=== PATIENT | male | born 1955 | race African-American/Black ===

== ENCOUNTER 2022-04-01 14:33 | Inpatient (IN) ==
[2022-04-01] MEDS ORDERED: GLUCOPHAGE ONE (16:25)
[2022-04-01] MEDS: ZOSYN VIAL 3.375 GRAMS 3.375 G in NS 100 ML IV 100 ML IV SCH ×2 (16:43→21:10)
[2022-04-01] MEDS: LR 1,000 ML IV 1,000 ML IV SCH (16:43)
[2022-04-01] MEDS: GLUCOPHAGE PO SCH (16:43)
[2022-04-01] MEDS: SNACK - Diabetic Appropriate PO SCH (19:58)
[2022-04-01] MEDS: NEURONTIN CAP 300 MG PO SCH (21:10)
[2022-04-02] MEDS ORDERED: GLUCOPHAGE ONE ×2 (05:41→17:11)
[2022-04-02] MEDS: LR 1,000 ML IV 1,000 ML IV SCH ×2 (06:01→17:07)
[2022-04-02] MEDS: AMARYL TAB 4 MG PO SCH (06:01)
[2022-04-02 06:02] LABS: BASOPHILS % (AUTO) 0.4 % (0.2-1.0); EOSINOPHILS # (AUTO) 0.3 x10^3/uL (0.0-0.2); EOSINOPHILS % (AUTO) 3.8 % (0.9-2.9); HEMATOCRIT 33.8 % (42.0-54.0); HEMOGLOBIN 11.8 g/dL (13.5-18.0); LYMPHOCYTES % (AUTO) 36.2 % (21.0-51.0); MEAN CORPUSCULAR HEMOGLOBIN 25.1 pg (27.0-34.0); MEAN CORPUSCULAR HGB CONC 34.9 g/dL (33.0-35.0); MEAN CORPUSCULAR VOLUME 71.9 fL (80.0-100.0); MEAN PLATELET VOLUME 7.9 fL (7.4-11.0); MONOCYTES # (AUTO) 0.6 x10^3/uL (0.3-0.8); MONOCYTES % (AUTO) 7.9 % (0.0-13.0); NEUTROPHILS # (AUTO) 4.2 x10^3/uL (2.2-4.8); NEUTROPHILS % (AUTO) 51.7 % (42.0-75.0); RED CELL DISTRIBUTION WIDTH 15.8 % (11.6-16.5); WHITE BLOOD COUNT 8.2 X10^3/uL (3.6-10.0)
[2022-04-02] MEDS: ZOSYN VIAL 3.375 GRAMS 3.375 G in NS 100 ML IV 100 ML IV SCH ×3 (06:02→21:01)
[2022-04-02] MEDS: GLUCOPHAGE PO SCH ×2 (06:02→17:12)
[2022-04-02 06:13] LABS: ALANINE AMINOTRANSFERASE 22 Units/L (12-78); ALBUMIN 3.2 g/dL (3.4-5.0); ALKALINE PHOSPHATASE 87 Units/L (46-116); ASPARTATE AMINO TRANSFERASE 14 Units/L (15-37); BLOOD UREA NITROGEN 20 mg/dL (7-18); CALCIUM 8.9 mg/dL (8.5-10.1); CARBON DIOXIDE 28.4 mmol/L (21-32); CHLORIDE 99 mmol/L (98-107); COR CA(FOR HYPOALB) 9.5 mg/dL (8.5-10.1); CREATININE 1.24 mg/dL (0.70-1.30); SODIUM 134 mmol/L (136-145); TOTAL PROTEIN 7.6 g/dL (6.4-8.2); eGFR NON BLACK RACES > 60 (>60)
[2022-04-02 06:32] LABS: PLATELET MORPHOLOGY COMMENT NORMAL (NORMAL)
[2022-04-02] MEDS ORDERED: ZESTRIL TAB 20 MG ONE (08:10)
[2022-04-02] MEDS: PROTONIX TAB 40 MG PO SCH ×3 (08:53→09:03)
[2022-04-02] MEDS: NEURONTIN CAP 300 MG PO SCH ×3 (08:57→21:01)
[2022-04-02] MEDS: ZESTRIL TAB 20 MG PO SCH ×2 (08:57→09:03)
[2022-04-02] MEDS ORDERED: LOVENOX INJ 40 MG SYR SC SCH (09:00)
--- NOTE | 2022-04-02 12:20 | VAS ---
HISTORYIschemic right footSTUDYABI SEGMENTAL PRESSURESCOMPARISONNoneTECHNIQUEBilatera l ankle-brachial indices obtained with spectral analysis and waveforms.FINDINGSLow right ankle-brachial index of 0.73.Normal left ankle-brachial index of 1.13.IMPRESSIONLow right ankle-brachial index of 0.73 consistent with peripheral vascular disease.Normal left ankle-brachial index of 1.13.Electronically signed by: BRANT PIERRE (Apr 02, 2022 12:19:02)
[2022-04-02] MEDS ORDERED: HEPARIN SODIUM INJ 5000 UNITS ONE (12:27)
[2022-04-02] MEDS ORDERED: HEPARIN SODIUM INJ 5000 UNITS IVP ONE (12:29)
[2022-04-02 12:49] VITALS: BMI 29.0
[2022-04-02] MEDS: HEPARIN SODIUM IN D5W 25,000 UNITS/500 ML BAG IV PRN (13:49)
--- NOTE | 2022-04-02 16:42 | NOTE.SOAP ---
Soap Note Note for Day of Date of Exam: 04/02/22 Subjective Data Subjective Data: Patient admitted for persistent rest pain of the right lower extremity with cellulitis and gangrenous changes to the right 5th toe. CT angiogram show significant disease, probable complete occlusion of the right superficial femoral artery distally with scattered diffuse disease of the right leg arteries. In addition on the left leg there is scattered disease with complete total occlusion of both the left posterior tibial and left anterior tibial arteries . ICU bed has become available and he will be started on a Heparin drip. . Objective Data Temperature: 97.6 F Pulse Rate: 76 Respiratory Rate: 16 Blood Pressure: 127/60 O2 Sat by Pulse Oximetry: 95 Objective Data: Right foot is stable. On IV antibiotics Assessment Assessment: Ischemic right leg with cellulitis and gangrenous changes . Plan Plan: Begin IV Heparin drip, continue IV antibiotics. Consult Dr. Richards to help with his medical problems. Tentatively plan intervention of this leg on April 06 as this is a holiday weekend. I think he is stable. He is already aware that he is probably going to have to have the right fifth toe amputated.
[2022-04-02] MEDS: SNACK - Diabetic Appropriate PO SCH (21:02)
[2022-04-02] MEDS: DILAUDID INJ IVP PRN (21:42)
[2022-04-03 02:24] LABS: BASOPHILS # (AUTO) 0.2 X10^3/uL (0.0-0.1); BASOPHILS % (AUTO) 2.1 % (0.2-1.0); EOSINOPHILS # (AUTO) 0.3 x10^3/uL (0.0-0.2); EOSINOPHILS % (AUTO) 4.1 % (0.9-2.9); HEMATOCRIT 32.6 % (42.0-54.0); HEMOGLOBIN 11.4 g/dL (13.5-18.0); LYMPHOCYTES # (AUTO) 3.2 X10^3/uL (1.3-2.9); MEAN CORPUSCULAR HEMOGLOBIN 25.3 pg (27.0-34.0); MEAN CORPUSCULAR HGB CONC 34.9 g/dL (33.0-35.0); MEAN CORPUSCULAR VOLUME 72.5 fL (80.0-100.0); MONOCYTES # (AUTO) 0.7 x10^3/uL (0.3-0.8); MONOCYTES % (AUTO) 8.5 % (0.0-13.0); NEUTROPHILS # (AUTO) 3.9 x10^3/uL (2.2-4.8); NEUTROPHILS % (AUTO) 47.3 % (42.0-75.0); RED CELL DISTRIBUTION WIDTH 15.5 % (11.6-16.5); WHITE BLOOD COUNT 8.4 X10^3/uL (3.6-10.0)
[2022-04-03 02:32] LABS: ALANINE AMINOTRANSFERASE 22 Units/L (12-78); ALBUMIN 2.9 g/dL (3.4-5.0); ALKALINE PHOSPHATASE 99 Units/L (46-116); ASPARTATE AMINO TRANSFERASE 12 Units/L (15-37); BLOOD UREA NITROGEN 18 mg/dL (7-18); CALCIUM 8.6 mg/dL (8.5-10.1); CARBON DIOXIDE 27.8 mmol/L (21-32); CHLORIDE 99 mmol/L (98-107); COR CA(FOR HYPOALB) 9.5 mg/dL (8.5-10.1); COR NA(FOR HYPERGLY) 136 mmol/L (136-145); CREATININE 1.28 mg/dL (0.70-1.30); SODIUM 132 mmol/L (136-145); TOTAL PROTEIN 7.1 g/dL (6.4-8.2); eGFR NON BLACK RACES 60 (>60)
[2022-04-03 02:36] LABS: HYPOCHROMASIA SLIGHT; PLATELET MORPHOLOGY COMMENT NORMAL (NORMAL)
[2022-04-03 02:37] LABS: MICROCYTOSIS SLIGHT
[2022-04-03] MEDS ORDERED: HEPARIN SODIUM INJ 5000 UNITS IVP ONE (02:56)
[2022-04-03] MEDS ORDERED: GLUCOPHAGE ONE ×2 (05:22→16:11)
[2022-04-03] MEDS: NEURONTIN CAP 300 MG PO SCH ×3 (05:43→21:15)
[2022-04-03] MEDS: ZOSYN VIAL 3.375 GRAMS 3.375 G in NS 100 ML IV 100 ML IV SCH ×3 (05:59→21:15)
[2022-04-03] MEDS: LR 1,000 ML IV 1,000 ML IV SCH ×3 (06:00→20:31)
[2022-04-03] MEDS: AMARYL TAB 4 MG PO SCH (06:05)
[2022-04-03] MEDS: GLUCOPHAGE PO SCH ×2 (06:06→16:09)
[2022-04-03] MEDS ORDERED: ZESTRIL TAB 20 MG ONE (08:02)
[2022-04-03] MEDS: ZESTRIL TAB 20 MG PO SCH (08:03)
[2022-04-03] MEDS: PROTONIX TAB 40 MG PO SCH (08:03)
[2022-04-03] MEDS: DILAUDID INJ IVP PRN ×3 (08:04→21:17)
[2022-04-03] MEDS: HEPARIN SODIUM IN D5W 25,000 UNITS/500 ML BAG IV PRN (10:34)
[2022-04-03] MEDS: NovoLIN R (or HumuLIN R) SUBCUT PRN (10:47)
[2022-04-03 11:31] LABS: MICROCYTOSIS SLIGHT
--- NOTE | 2022-04-03 12:58 | DR.CONSULT ---
CONSULT Consultation for Day of: Date: 04/02/22 Chief Complaint Chief Complaint: Medical consult for medical management Allergies Allergies Allergy/AdvReac Type Severity Reaction Status Date / Time No Known Drug Allergies Allergy Verified 04/01/22 16:22 [NKDA] History of Present Illness History of Present Illness: This is a pleasant 66-year-old black male. I was consulted to manage his chronic medical problems which consisted of diabetes mellitus type 2, hypertension and acid reflux. He is currently awaiting to undergo surgery for poor circulation to his right fifth toe. He does complain of pain in the right lower extremity and asked to have his gabapentin increased from once a day to at least twice a day. He also reports he takes buprenorphine for pain and keep him from withdrawing from opioids. He has no other complaints at this time. Past Medical History Past Medical History: Diabetes, GERD and Hypertension Social History Does patient currently use any type of tobacco product: No Have you used tobacco products in the last 12 months: No Type of Tobacco Use: None Alcohol Use: None Drug Use: None Medications Home Medications: No Known Drug Allergies [NKDA] Allergy (Verified 04/01/22 16:22) CONTINUE taking the following medications buprenorphine HCl 8 mg sublingual tablet 8 mg sublingual TID PRN 04/01/22 [History] gabapentin 100 mg capsule 1 cap PO DAILY 04/01/22 [History] glimepiride 4 mg tablet 1 tab PO DAILY 04/01/22 [History] lansoprazole 30 mg capsule,delayed release 1 cap PO QDAY 04/01/22 [History] lansoprazole 30 mg capsule,delayed release 1 cap PO QDAY 04/01/22 [History] lisinopril 20 mg tablet 1 tab PO DAILY 04/01/22 [History] metformin 500 mg tablet,extended release 24 hr 2 tab PO BID 04/01/22 [History] sulfamethoxazole 800 mg-trimethoprim 160 mg tablet 1 tab PO BID 04/01/22 [History] Review of Systems Constitutional: No Symptoms Reported Eyes: No Symptoms Reported ENT: No Symptoms Reported Respiratory: No Symptoms Reported Cardiovascular: No Symptoms Reported Gastrointestinal: No Symptoms Reported Genitourinary: No Symptoms Reported Musculoskeletal: Leg Pain (Right lower leg and foot pain) Skin: No Symptoms Reported Neurological: No Symptoms Reported Physical Exam Vital Signs: Temperature 97.8 F Pulse Rate [Left Radial] 71 Pulse Rate 74 Respiratory Rate 20 Blood Pressure [Right Arm] 132/65 Blood Pressure 127/68 O2 Sat by Pulse Oximetry 97 Oriented: Normal Eyes: Normal Ear: Normal Nose: Normal Throat: Normal Respiratory: Clear Throughout Cardiovascular: Normal : Normal Auscultation: Bowel Sounds: Normal Palpation: Normal Tenderness: Normal Skin: Normal Musculoskeletal: Normal Psychiatric: Normal Mood Description: Calm Affect: Normal Speech Pattern: Clear and Appropriate Plan (1) Diabetes 1.5, managed as type 1: Status: Acute Plan: Continue patient on Amaryl and insulin sliding scale per protocol. (2) Essential (primary) hypertension: Status: Acute Plan: Continue the patient on lisinopril at this time. (3) Acid reflux: Status: Acute Plan: Continue pantoprazole at this time. (4) Atherosclerosis of [place] arteries of right leg with ulceration of other part of foot: Status: Acute Plan: Treatment per Dr. Badillo, vascular surgery. (5) Pain of right lower extremity: Status: Acute Plan: I will increase the patient's gabapentin to 300 mg 3 times daily. Patient has as needed Dilaudid ordered for uncontrollable pain.
--- NOTE | 2022-04-03 13:04 | PCM.PROG ---
Progress Note Progress Note for Day of Date of Exam: 04/03/22 Subjective Subjective: The patient is sitting up eating breakfast this morning. He reports he is doing well and not having any problems at this time. I informed him that I did increase his gabapentin and that he does have Dilaudid if he does need something for pain he can ask for. Vital signs are stable this morning however it is noted his sodium slightly low 132. Past Medical Family Social History Allergies: Allergies No Known Drug Allergies [NKDA] Allergy (Verified 04/01/22 16:22) Review of Systems ROS: No change since H&P Vital Signs and I&O's Vital Signs: Temperature 97.8 F Pulse Rate [Left Radial] 71 Pulse Rate 74 Respiratory Rate 20 Blood Pressure [Right Arm] 132/65 Blood Pressure 127/68 O2 Sat by Pulse Oximetry 97 Intake and Output: Intake & Output 04/01/22 04/02/22 04/03/22 04/04/22 11:59 11:59 11:59 11:59 Intake Total 1321 / 1321 2245 / 2245 Output Total 1450 / 1450 Balance 1321 / 1321 795 / 795 Physical Exam Oriented: Normal Eyes: Normal Ear: Normal Nose: Normal Throat: Normal Respiratory: Normal Cardiovascular: Normal : Normal Auscultation: Bowel Sounds: Normal Palpation: Normal Tenderness: Normal Skin: Normal Musculoskeletal: Normal Psychiatric: Normal Mood Description: Calm Affect: Normal Speech Pattern: Clear and Appropriate Laboratory and Diagnostics Result Diagrams: 04/03/22 02:08 04/03/22 02:08 Labs: Laboratory WBC 8.4 X10^3/uL (3.6-10.0) 04/03/22 02:08 RBC 4.50 X10^6/uL (4.7-6.0) L 04/03/22 02:08 Hgb 11.4 g/dL (13.5-18.0) L 04/03/22 02:08 Hct 32.6 % (42.0-54.0) L 04/03/22 02:08 MCV 72.5 fL (80.0-100.0) L 04/03/22 02:08 MCH 25.3 pg (27.0-34.0) L 04/03/22 02:08 MCHC 34.9 g/dL (33.0-35.0) 04/03/22 02:08 RDW 15.5 % (11.6-16.5) 04/03/22 02:08 Plt Count 279 X10^3/uL (150.0-450.0) 04/03/22 02:08 Plt Count Comment Adequate (ADEQUATE) 04/03/22 02:08 MPV 8.0 fL (7.4-11.0) 04/03/22 02:08 Neut % (Auto) 47.3 % (42.0-75.0) 04/03/22 02:08 Lymph % (Auto) 38.0 % (21.0-51.0) 04/03/22 02:08 [place] % (Auto) 8.5 % (0.0-13.0) 04/03/22 02:08 Eos % (Auto) 4.1 % (0.9-2.9) H 04/03/22 02:08 Baso % (Auto) 2.1 % (0.2-1.0) H 04/03/22 02:08 Neut # (Auto) 3.9 x10^3/uL (2.2-4.8) 04/03/22 02:08 Lymph # (Auto) 3.2 X10^3/uL (1.3-2.9) H 04/03/22 02:08 [place] # (Auto) 0.7 x10^3/uL (0.3-0.8) 04/03/22 02:08 Eos # (Auto) 0.3 x10^3/uL (0.0-0.2) H 04/03/22 02:08 Baso # (Auto) 0.2 X10^3/uL (0.0-0.1) H 04/03/22 02:08 Absolute Nucleated RBC 0.1 /100WBC 04/03/22 02:08 Plt Morphology Comment Normal (NORMAL) 04/03/22 02:08 RBC Morphology Abnormal (NORMAL) 04/03/22 02:08 Hypochromasia Slight A 04/03/22 02:08 Microcytosis Slight A 04/03/22 02:08 PT 15.5 SECONDS (11.8-14.3) 04/02/22 12:10 INR Target Range - 04/02/22 12:10 INR 1.27 (0.8-1.3) 04/02/22 12:10 APTT 121.7 SECONDS (22.9-36.5) H 04/03/22 08:20 PTT Comment - 04/03/22 08:20 Sodium 132 mmol/L (136-145) L 04/03/22 02:08 Corrected Sodium 136 mmol/L (136-145) 04/03/22 02:08 Potassium 4.6 mmol/L (3.5-5.1) 04/03/22 02:08 Chloride 99 mmol/L (98-107) 04/03/22 02:08 Carbon Dioxide 27.8 mmol/L (21-32) 04/03/22 02:08 BUN 18 mg/dL (7-18) 04/03/22 02:08 Creatinine 1.28 mg/dL (0.70-1.30) 04/03/22 02:08 Est GFR (MDRD) Af Amer > 60 (>60) 04/03/22 02:08 Est GFR (MDRD) Non-Af 60 (>60) 04/03/22 02:08 Glucose 271 mg/dL (65-99) H 04/03/22 02:08 POC Glucose (mg/dL) 166 mg/dL (65-99) H 04/03/22 10:31 Calcium 8.6 mg/dL (8.5-10.1) 04/03/22 02:08 Corrected Calcium 9.5 mg/dL (8.5-10.1) 04/03/22 02:08 Total Bilirubin 0.20 mg/dL (0.2-1.0) 04/03/22 02:08 AST 12 Units/L (15-37) L 04/03/22 02:08 ALT 22 Units/L (12-78) 04/03/22 02:08 Alkaline Phosphatase 99 Units/L (46-116) 04/03/22 02:08 Total Protein 7.1 g/dL (6.4-8.2) 04/03/22 02:08 Albumin 2.9 g/dL (3.4-5.0) L 04/03/22 02:08 Globulin 4.2 g/dL (2.5-4.5) 04/03/22 02:08 Albumin/Globulin Ratio 0.7 Ratio (1.1-2.1) L 04/03/22 02:08 SARS-CoV-2 (PCR) Negative (NEGATIVE) 04/01/22 17:51 Plan (1) Diabetes 1.5, managed as type 1: Status: Acute Narrative Support Text: Patient's blood sugar is noted to be elevated at 271 this morning. Plan: I am going to add Levemir 10 units twice daily for better glucose control. (2) Essential (primary) hypertension: Status: Acute Narrative Support Text: Blood pressure stable Plan: Continue lisinopril (3) Acid reflux: Status: Acute Plan: Continue pantoprazole (4) Atherosclerosis of [place] arteries of right leg with ulceration of other part of foot: Status: Acute Plan: Treatment for vascular surgery. (5) Pain of right lower extremity: Status: Acute Plan: As needed Dilaudid
[2022-04-03] MEDS: LEVEMIR SC SCH ×2 (14:15→21:23)
[2022-04-03] MEDS ORDERED: SNACK - Diabetic Appropriate PO SCH ×2 (20:00)
[2022-04-03] MEDS: SNACK - Diabetic Appropriate PO SCH (21:22)
[2022-04-04] MEDS: NEURONTIN CAP 300 MG PO SCH ×3 (05:18→21:07)
[2022-04-04] MEDS: ZOSYN VIAL 3.375 GRAMS 3.375 G in NS 100 ML IV 100 ML IV SCH ×3 (05:18→21:08)
[2022-04-04 05:45] LABS: BASOPHILS # (AUTO) 0.1 X10^3/uL (0.0-0.1); BASOPHILS % (AUTO) 0.6 % (0.2-1.0); EOSINOPHILS # (AUTO) 0.4 x10^3/uL (0.0-0.2); EOSINOPHILS % (AUTO) 4.3 % (0.9-2.9); HEMATOCRIT 32.9 % (42.0-54.0); HEMOGLOBIN 11.6 g/dL (13.5-18.0); LYMPHOCYTES # (AUTO) 3.4 X10^3/uL (1.3-2.9); LYMPHOCYTES % (AUTO) 39.9 % (21.0-51.0); MEAN CORPUSCULAR HEMOGLOBIN 25.4 pg (27.0-34.0); MEAN CORPUSCULAR HGB CONC 35.3 g/dL (33.0-35.0); MEAN CORPUSCULAR VOLUME 71.9 fL (80.0-100.0); MEAN PLATELET VOLUME 8.2 fL (7.4-11.0); MONOCYTES # (AUTO) 0.6 x10^3/uL (0.3-0.8); NEUTROPHILS # (AUTO) 4.1 x10^3/uL (2.2-4.8); NEUTROPHILS % (AUTO) 48.2 % (42.0-75.0); RED BLOOD COUNT 4.57 X10^6/uL (4.7-6.0); RED CELL DISTRIBUTION WIDTH 15.2 % (11.6-16.5); WHITE BLOOD COUNT 8.6 X10^3/uL (3.6-10.0)
[2022-04-04 05:56] LABS: ALANINE AMINOTRANSFERASE 22 Units/L (12-78); ALBUMIN 2.9 g/dL (3.4-5.0); ALKALINE PHOSPHATASE 94 Units/L (46-116); ASPARTATE AMINO TRANSFERASE 14 Units/L (15-37); BLOOD UREA NITROGEN 15 mg/dL (7-18); CALCIUM 8.5 mg/dL (8.5-10.1); CARBON DIOXIDE 28.5 mmol/L (21-32); CHLORIDE 101 mmol/L (98-107); COR CA(FOR HYPOALB) 9.4 mg/dL (8.5-10.1); COR NA(FOR HYPERGLY) 138 mmol/L (136-145); CREATININE 1.08 mg/dL (0.70-1.30); SODIUM 135 mmol/L (136-145); eGFR NON BLACK RACES > 60 (>60)
[2022-04-04] MEDS ORDERED: GLUCOPHAGE ONE ×2 (06:09→16:44)
[2022-04-04 06:22] LABS: HYPOCHROMASIA SLIGHT; PLATELET MORPHOLOGY COMMENT NORMAL (NORMAL)
[2022-04-04 06:23] LABS: MICROCYTOSIS SLIGHT
[2022-04-04] MEDS: GLUCOPHAGE PO SCH ×2 (06:23→16:45)
[2022-04-04] MEDS: AMARYL TAB 4 MG PO SCH (06:24)
[2022-04-04] MEDS: DILAUDID INJ IVP PRN ×3 (06:48→19:18)
[2022-04-04] MEDS ORDERED: ZESTRIL TAB 20 MG ONE (08:08)
[2022-04-04] MEDS: LEVEMIR SC SCH ×2 (08:13→21:09)
[2022-04-04] MEDS: PROTONIX TAB 40 MG PO SCH (08:13)
[2022-04-04] MEDS: ZESTRIL TAB 20 MG PO SCH (08:14)
[2022-04-04] MEDS: LR 1,000 ML IV 1,000 ML IV SCH ×2 (09:56→23:38)
[2022-04-04] MEDS ORDERED: SUBOXONE TAB SL SCH (10:00)
--- NOTE | 2022-04-04 11:18 | PCM.PROG ---
Progress Note Progress Note for Day of Date of Exam: 04/04/22 Subjective Subjective: The patient is sitting up eating breakfast this morning. He reports he is doing well and not having any problems at this time. The patient's family brought his buprenorphine last night. I will started past noon today as he had a early dose of Dilaudid this morning. We will start him on 8 mg twice daily. His glucose is better controlled since adding Levemir last night. Past Medical Family Social History Allergies: Allergies No Known Drug Allergies [NKDA] Allergy (Verified 04/01/22 16:22) Review of Systems ROS: No change since H&P Vital Signs and I&O's Vital Signs: Temperature 98.2 F Pulse Rate [Left Radial] 71 Pulse Rate 78 Respiratory Rate 18 Blood Pressure [Right Arm] 132/65 Blood Pressure 144/65 O2 Sat by Pulse Oximetry 98 Intake and Output: Intake & Output 04/01/22 04/02/22 04/03/22 04/04/22 11:59 11:59 11:59 11:59 Intake Total 1321 / 1321 2245 / 2245 3693 / 3693 Output Total 1450 / 1450 3450 / 3450 Balance 1321 / 1321 795 / 795 243 / 243 Physical Exam Oriented: Normal Eyes: Normal Ear: Normal Nose: Normal Throat: Normal Respiratory: Normal Cardiovascular: Normal : Normal Auscultation: Bowel Sounds: Normal Palpation: Normal Tenderness: Normal Skin: Normal Musculoskeletal: Normal Psychiatric: Normal Mood Description: Calm Affect: Normal Speech Pattern: Clear and Appropriate Laboratory and Diagnostics Result Diagrams: 04/04/22 04:25 04/04/22 04:25 Labs: Laboratory WBC 8.6 X10^3/uL (3.6-10.0) 04/04/22 04:25 RBC 4.57 X10^6/uL (4.7-6.0) L 04/04/22 04:25 Hgb 11.6 g/dL (13.5-18.0) L 04/04/22 04:25 Hct 32.9 % (42.0-54.0) L 04/04/22 04:25 MCV 71.9 fL (80.0-100.0) L 04/04/22 04:25 MCH 25.4 pg (27.0-34.0) L 04/04/22 04:25 MCHC 35.3 g/dL (33.0-35.0) H 04/04/22 04:25 RDW 15.2 % (11.6-16.5) 04/04/22 04:25 Plt Count 282 X10^3/uL (150.0-450.0) 04/04/22 04:25 Plt Count Comment Adequate (ADEQUATE) 04/04/22 04:25 MPV 8.2 fL (7.4-11.0) 04/04/22 04:25 Neut % (Auto) 48.2 % (42.0-75.0) 04/04/22 04:25 Lymph % (Auto) 39.9 % (21.0-51.0) 04/04/22 04:25 [place] % (Auto) 7.0 % (0.0-13.0) 04/04/22 04:25 Eos % (Auto) 4.3 % (0.9-2.9) H 04/04/22 04:25 Baso % (Auto) 0.6 % (0.2-1.0) 04/04/22 04:25 Neut # (Auto) 4.1 x10^3/uL (2.2-4.8) 04/04/22 04:25 Lymph # (Auto) 3.4 X10^3/uL (1.3-2.9) H 04/04/22 04:25 [place] # (Auto) 0.6 x10^3/uL (0.3-0.8) 04/04/22 04:25 Eos # (Auto) 0.4 x10^3/uL (0.0-0.2) H 04/04/22 04:25 Baso # (Auto) 0.1 X10^3/uL (0.0-0.1) 04/04/22 04:25 Absolute Nucleated RBC 0.0 /100WBC 04/04/22 04:25 Plt Morphology Comment Normal (NORMAL) 04/04/22 04:25 RBC Morphology Abnormal (NORMAL) 04/04/22 04:25 Hypochromasia Slight A 04/04/22 04:25 Microcytosis Slight A 04/04/22 04:25 PT 15.5 SECONDS (11.8-14.3) 04/02/22 12:10 INR Target Range - 04/02/22 12:10 INR 1.27 (0.8-1.3) 04/02/22 12:10 APTT 78.0 SECONDS (22.9-36.5) H 04/04/22 04:25 PTT Comment - 04/04/22 04:25 Sodium 135 mmol/L (136-145) L 04/04/22 04:25 Corrected Sodium 138 mmol/L (136-145) 04/04/22 04:25 Potassium 4.3 mmol/L (3.5-5.1) 04/04/22 04:25 Chloride 101 mmol/L (98-107) 04/04/22 04:25 Carbon Dioxide 28.5 mmol/L (21-32) 04/04/22 04:25 BUN 15 mg/dL (7-18) 04/04/22 04:25 Creatinine 1.08 mg/dL (0.70-1.30) 04/04/22 04:25 Est GFR (MDRD) Af Amer > 60 (>60) 04/04/22 04:25 Est GFR (MDRD) Non-Af > 60 (>60) 04/04/22 04:25 Glucose 206 mg/dL (65-99) H 04/04/22 04:25 POC Glucose (mg/dL) 159 mg/dL (65-99) H 04/04/22 06:17 Calcium 8.5 mg/dL (8.5-10.1) 04/04/22 04:25 Corrected Calcium 9.4 mg/dL (8.5-10.1) 04/04/22 04:25 Total Bilirubin 0.20 mg/dL (0.2-1.0) 04/04/22 04:25 AST 14 Units/L (15-37) L 04/04/22 04:25 ALT 22 Units/L (12-78) 04/04/22 04:25 Alkaline Phosphatase 94 Units/L (46-116) 04/04/22 04:25 Total Protein 7.0 g/dL (6.4-8.2) 04/04/22 04:25 Albumin 2.9 g/dL (3.4-5.0) L 04/04/22 04:25 Globulin 4.1 g/dL (2.5-4.5) 04/04/22 04:25 Albumin/Globulin Ratio 0.7 Ratio (1.1-2.1) L 04/04/22 04:25 SARS-CoV-2 (PCR) Negative (NEGATIVE) 04/01/22 17:51 Plan (1) Diabetes 1.5, managed as type 1: Status: Acute Plan: I am going to add Levemir 10 units twice daily for better glucose control. (2) Essential (primary) hypertension: Status: Acute Plan: Continue lisinopril (3) Acid reflux: Status: Acute Plan: Continue pantoprazole (4) Atherosclerosis of [place] arteries of right leg with ulceration of other part of foot: Status: Acute Plan: Treatment for vascular surgery. (5) Pain of right lower extremity: Status: Acute Plan: DC Dilaudid. Start buprenorphine 8 mg p.o. every 12 hours.
[2022-04-04] MEDS: SNACK - Diabetic Appropriate PO SCH (21:09)
[2022-04-05 04:57] LABS: BASOPHILS # (AUTO) 0.1 X10^3/uL (0.0-0.1); BASOPHILS % (AUTO) 0.7 % (0.2-1.0); EOSINOPHILS # (AUTO) 0.3 x10^3/uL (0.0-0.2); HEMATOCRIT 32.3 % (42.0-54.0); HEMOGLOBIN 11.3 g/dL (13.5-18.0); LYMPHOCYTES # (AUTO) 3.2 X10^3/uL (1.3-2.9); LYMPHOCYTES % (AUTO) 38.2 % (21.0-51.0); MEAN CORPUSCULAR HEMOGLOBIN 25.2 pg (27.0-34.0); MEAN CORPUSCULAR HGB CONC 35.1 g/dL (33.0-35.0); MEAN CORPUSCULAR VOLUME 71.9 fL (80.0-100.0); MEAN PLATELET VOLUME 8.1 fL (7.4-11.0); MONOCYTES # (AUTO) 0.6 x10^3/uL (0.3-0.8); MONOCYTES % (AUTO) 7.1 % (0.0-13.0); NEUTROPHILS # (AUTO) 4.2 x10^3/uL (2.2-4.8); RED BLOOD COUNT 4.49 X10^6/uL (4.7-6.0); RED CELL DISTRIBUTION WIDTH 15.3 % (11.6-16.5); WHITE BLOOD COUNT 8.4 X10^3/uL (3.6-10.0)
[2022-04-05 05:05] LABS: ALANINE AMINOTRANSFERASE 45 Units/L (12-78); ALBUMIN 2.8 g/dL (3.4-5.0); ALKALINE PHOSPHATASE 87 Units/L (46-116); ASPARTATE AMINO TRANSFERASE 34 Units/L (15-37); BLOOD UREA NITROGEN 14 mg/dL (7-18); CALCIUM 8.8 mg/dL (8.5-10.1); CARBON DIOXIDE 29.3 mmol/L (21-32); CHLORIDE 101 mmol/L (98-107); COR CA(FOR HYPOALB) 9.8 mg/dL (8.5-10.1); COR NA(FOR HYPERGLY) 137 mmol/L (136-145); CREATININE 0.99 mg/dL (0.70-1.30); SODIUM 136 mmol/L (136-145); TOTAL PROTEIN 7.1 g/dL (6.4-8.2); eGFR NON BLACK RACES > 60 (>60)
[2022-04-05] MEDS: ZOSYN VIAL 3.375 GRAMS 3.375 G in NS 100 ML IV 100 ML IV SCH ×3 (05:10→21:11)
[2022-04-05] MEDS: NEURONTIN CAP 300 MG PO SCH ×3 (05:11→21:11)
[2022-04-05 05:42] LABS: HYPOCHROMASIA SLIGHT; MICROCYTOSIS SLIGHT; PLATELET MORPHOLOGY COMMENT NORMAL (NORMAL)
[2022-04-05] MEDS ORDERED: GLUCOPHAGE ONE ×2 (05:59→16:39)
[2022-04-05] MEDS: GLUCOPHAGE PO SCH ×2 (06:03→16:53)
[2022-04-05] MEDS: HEPARIN SODIUM IN D5W 25,000 UNITS/500 ML BAG IV PRN (06:04)
[2022-04-05] MEDS: AMARYL TAB 4 MG PO SCH (06:04)
[2022-04-05] MEDS ORDERED: ZESTRIL TAB 20 MG ONE (08:14)
[2022-04-05] MEDS: LEVEMIR SC SCH ×2 (08:59→21:10)
[2022-04-05] MEDS: PROTONIX TAB 40 MG PO SCH (09:00)
[2022-04-05] MEDS: ZESTRIL TAB 20 MG PO SCH (09:00)
[2022-04-05] MEDS: DILAUDID INJ IVP PRN ×2 (10:17→16:53)
[2022-04-05] MEDS: LR 1,000 ML IV 1,000 ML IV SCH (11:31)
--- NOTE | 2022-04-05 15:03 | PCM.PROG ---
Progress Note Progress Note for Day of Date of Exam: 04/05/22 Subjective Subjective: The patient is doing well this morning. His blood pressure is improved looking back over yesterday's blood pressures. Blood sugars are stable. Pain is controlled with Dilaudid. Dr. Badillo, vascular surgeon is Dr. Mendez and I suspect we will go ahead and proceed with the procedure he has in mind. Past Medical Family Social History Allergies: Allergies No Known Drug Allergies [NKDA] Allergy (Verified 04/01/22 16:22) Review of Systems ROS: No change since H&P Vital Signs and I&O's Vital Signs: Temperature 98.0 F Pulse Rate [Left Radial] 71 Pulse Rate 96 Respiratory Rate 22 Blood Pressure [Right Arm] 132/65 Blood Pressure 140/89 O2 Sat by Pulse Oximetry 98 Intake and Output: Intake & Output 04/03/22 04/04/22 04/05/22 04/06/22 11:59 11:59 11:59 11:59 Intake Total 2245 / 2245 3893 / 3893 4040 / 4040 Output Total 1450 / 1450 3450 / 3450 2500 / 2500 Balance 795 / 795 443 / 443 1540 / 1540 Physical Exam Oriented: Normal Eyes: Normal Ear: Normal Nose: Normal Throat: Normal Respiratory: Normal Cardiovascular: Normal : Normal Auscultation: Bowel Sounds: Normal Palpation: Normal Tenderness: Normal Skin: Normal Musculoskeletal: Normal Psychiatric: Normal Mood Description: Calm Affect: Normal Speech Pattern: Clear and Appropriate Laboratory and Diagnostics Result Diagrams: 04/05/22 04:13 04/05/22 04:13 Labs: Laboratory WBC 8.4 X10^3/uL (3.6-10.0) 04/05/22 04:13 RBC 4.49 X10^6/uL (4.7-6.0) L 04/05/22 04:13 Hgb 11.3 g/dL (13.5-18.0) L 04/05/22 04:13 Hct 32.3 % (42.0-54.0) L 04/05/22 04:13 MCV 71.9 fL (80.0-100.0) L 04/05/22 04:13 MCH 25.2 pg (27.0-34.0) L 04/05/22 04:13 MCHC 35.1 g/dL (33.0-35.0) H 04/05/22 04:13 RDW 15.3 % (11.6-16.5) 04/05/22 04:13 Plt Count 285 X10^3/uL (150.0-450.0) 04/05/22 04:13 Plt Count Comment Adequate (ADEQUATE) 04/05/22 04:13 MPV 8.1 fL (7.4-11.0) 04/05/22 04:13 Neut % (Auto) 50.0 % (42.0-75.0) 04/05/22 04:13 Lymph % (Auto) 38.2 % (21.0-51.0) 04/05/22 04:13 [place] % (Auto) 7.1 % (0.0-13.0) 04/05/22 04:13 Eos % (Auto) 4.0 % (0.9-2.9) H 04/05/22 04:13 Baso % (Auto) 0.7 % (0.2-1.0) 04/05/22 04:13 Neut # (Auto) 4.2 x10^3/uL (2.2-4.8) 04/05/22 04:13 Lymph # (Auto) 3.2 X10^3/uL (1.3-2.9) H 04/05/22 04:13 [place] # (Auto) 0.6 x10^3/uL (0.3-0.8) 04/05/22 04:13 Eos # (Auto) 0.3 x10^3/uL (0.0-0.2) H 04/05/22 04:13 Baso # (Auto) 0.1 X10^3/uL (0.0-0.1) 04/05/22 04:13 Absolute Nucleated RBC 0.0 /100WBC 04/05/22 04:13 Plt Morphology Comment Normal (NORMAL) 04/05/22 04:13 RBC Morphology Abnormal (NORMAL) 04/05/22 04:13 Hypochromasia Slight A 04/05/22 04:13 Microcytosis Slight A 04/05/22 04:13 PT 15.5 SECONDS (11.8-14.3) 04/02/22 12:10 INR Target Range - 04/02/22 12:10 INR 1.27 (0.8-1.3) 04/02/22 12:10 APTT 77.5 SECONDS (22.9-36.5) H 04/05/22 04:13 PTT Comment - 04/05/22 04:13 Sodium 136 mmol/L (136-145) 04/05/22 04:13 Corrected Sodium 137 mmol/L (136-145) 04/05/22 04:13 Potassium 4.1 mmol/L (3.5-5.1) 04/05/22 04:13 Chloride 101 mmol/L (98-107) 04/05/22 04:13 Carbon Dioxide 29.3 mmol/L (21-32) 04/05/22 04:13 BUN 14 mg/dL (7-18) 04/05/22 04:13 Creatinine 0.99 mg/dL (0.70-1.30) 04/05/22 04:13 Est GFR (MDRD) Af Amer > 60 (>60) 04/05/22 04:13 Est GFR (MDRD) Non-Af > 60 (>60) 04/05/22 04:13 Glucose 136 mg/dL (65-99) H 04/05/22 04:13 POC Glucose (mg/dL) 144 mg/dL (65-99) H 04/05/22 11:04 Calcium 8.8 mg/dL (8.5-10.1) 04/05/22 04:13 Corrected Calcium 9.8 mg/dL (8.5-10.1) 04/05/22 04:13 Total Bilirubin 0.20 mg/dL (0.2-1.0) 04/05/22 04:13 AST 34 Units/L (15-37) 04/05/22 04:13 ALT 45 Units/L (12-78) 04/05/22 04:13 Alkaline Phosphatase 87 Units/L (46-116) 04/05/22 04:13 Total Protein 7.1 g/dL (6.4-8.2) 04/05/22 04:13 Albumin 2.8 g/dL (3.4-5.0) L 04/05/22 04:13 Globulin 4.3 g/dL (2.5-4.5) 04/05/22 04:13 Albumin/Globulin Ratio 0.7 Ratio (1.1-2.1) L 04/05/22 04:13 SARS-CoV-2 (PCR) Negative (NEGATIVE) 04/01/22 17:51 Plan (1) Diabetes 1.5, managed as type 1: Status: Acute Plan: I am going to add Levemir 10 units twice daily for better glucose control. 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 (5) Pain of right lower extremity: Status: Acute Plan: Continue Dilaudid. I would not give the patient buprenorphine since he is receiving Dilaudid and there is increased risk of acute opioid withdrawal if they were combined.
[2022-04-05] MEDS: SNACK - Diabetic Appropriate PO SCH (20:21)
--- NOTE | 2022-04-05 22:54 | RAD ---
HISTORYS/P SURGERYSTUDYCHEST, 1 VIEWCOMPARISONNone availableTECHNIQUEChest radiographic imaging, AP portable projection, 1 imageFINDINGSNo cardiomegaly.No focal airspace disease.No pleural effusion.No pneumothorax.No acute osseous abnormality.IMPRESSIONNo imaging findings of acute cardiopulmonary disease.Electronically signed by: Christian Vaca (Apr 05, 2022 22:52:56)
[2022-04-06] MEDS: HEPARIN SODIUM IN D5W 25,000 UNITS/500 ML BAG IV PRN (00:16)
[2022-04-06] MEDS: LR 1,000 ML IV 1,000 ML IV SCH ×3 (00:16→13:51)
[2022-04-06] MEDS: DILAUDID INJ IVP PRN ×4 (00:17→20:25)
--- NOTE | 2022-04-06 01:35 | NOTE.SOAP ---
Soap Note Note for Day of Date of Exam: 04/05/22 Subjective Data Subjective Data: Patient with ischemic right foot, gangrene right 5th toe and cellulitis . On heparin drip AND IV antibiotics. Cellulitis nearly resolved right foot. Objective Data Temperature: 97.8 F Pulse Rate: 80 Respiratory Rate: 14 Blood Pressure: 147/67 O2 Sat by Pulse Oximetry: 96 Objective Data: Cellulitis resolved, rifght 5th tow is black and ischemic. CTA shows total occlusion of the right SFA . Known distal disease as well arteries right leg. Assessment Assessment: Ischemic right foot with cellulitis and gangrene right 5th toe. Plan Plan: to OR in AM for revascularization right leg.
[2022-04-06] MEDS: ZOSYN VIAL 3.375 GRAMS 3.375 G in NS 100 ML IV 100 ML IV SCH ×3 (05:09→21:14)
[2022-04-06] MEDS: NEURONTIN CAP 300 MG PO SCH ×3 (05:09→21:14)
[2022-04-06 05:32] LABS: BASOPHILS % (AUTO) 0.5 % (0.2-1.0); EOSINOPHILS # (AUTO) 0.4 x10^3/uL (0.0-0.2); EOSINOPHILS % (AUTO) 3.9 % (0.9-2.9); HEMATOCRIT 33.5 % (42.0-54.0); HEMOGLOBIN 11.6 g/dL (13.5-18.0); LYMPHOCYTES # (AUTO) 3.4 X10^3/uL (1.3-2.9); MEAN CORPUSCULAR HEMOGLOBIN 25.1 pg (27.0-34.0); MEAN CORPUSCULAR HGB CONC 34.6 g/dL (33.0-35.0); MEAN CORPUSCULAR VOLUME 72.5 fL (80.0-100.0); MEAN PLATELET VOLUME 8.1 fL (7.4-11.0); MONOCYTES # (AUTO) 0.5 x10^3/uL (0.3-0.8); MONOCYTES % (AUTO) 5.8 % (0.0-13.0); NEUTROPHILS # (AUTO) 4.7 x10^3/uL (2.2-4.8); NEUTROPHILS % (AUTO) 51.8 % (42.0-75.0); RED BLOOD COUNT 4.61 X10^6/uL (4.7-6.0); RED CELL DISTRIBUTION WIDTH 15.4 % (11.6-16.5)
[2022-04-06 05:49] LABS: ALANINE AMINOTRANSFERASE 85 Units/L (12-78); ALKALINE PHOSPHATASE 93 Units/L (46-116); ASPARTATE AMINO TRANSFERASE 50 Units/L (15-37); BLOOD UREA NITROGEN 12 mg/dL (7-18); CARBON DIOXIDE 28.9 mmol/L (21-32); CHLORIDE 102 mmol/L (98-107); COR CA(FOR HYPOALB) 9.8 mg/dL (8.5-10.1); COR NA(FOR HYPERGLY) 140 mmol/L (136-145); CREATININE 0.94 mg/dL (0.70-1.30); SODIUM 138 mmol/L (136-145); TOTAL PROTEIN 7.3 g/dL (6.4-8.2); eGFR NON BLACK RACES > 60 (>60)
[2022-04-06] MEDS: AMARYL TAB 4 MG PO SCH (06:00)
[2022-04-06] MEDS: GLUCOPHAGE PO SCH ×2 (06:00→16:15)
[2022-04-06 06:07] LABS: PLATELET MORPHOLOGY COMMENT NORMAL (NORMAL)
[2022-04-06 06:08] LABS: HYPOCHROMASIA SLIGHT; MICROCYTOSIS SLIGHT
[2022-04-06] MEDS ORDERED: MARCAINE 0.5% ONE (06:45)
[2022-04-06] MEDS: HEPARIN SODIUM IN D5W 75,000 UNITS/1,500 ML BAG ONE ×2 (06:45→07:02)
[2022-04-06] MEDS ORDERED: NS 1,000 ML IV 1,000 ML ONE (07:06)
[2022-04-06] MEDS ORDERED: FENTANYL VIAL INJ 100 mcg ONE (07:26)
[2022-04-06] MEDS ORDERED: VERSED ONE (07:26)
[2022-04-06] MEDS ORDERED: ANCEF VIAL 1 GRAM ONE (07:28)
[2022-04-06] MEDS ORDERED: NS 100 ML IV 100 ML ONE (07:29)
[2022-04-06] MEDS ORDERED: DIPRIVAN VIAL 40 ML ONE (07:30)
[2022-04-06] MEDS ORDERED: HEPARIN SODIUM INJ 5000 UNITS ONE (07:52)
--- NOTE | 2022-04-06 08:52 | OR.IMMED ---
IMMEDIATE POST-OP NOTE Immediate Post-Op Note Pre-Op Diagnosis: Ischemic right leg, cellulitis, gangrene right 5th toe Post-Op Diagnosis: same Procedure: aortogram, arteriogram right LE , atherectomy and DCB severe disease distal right SFA and QUALITY PROJECT MANAGER at adductor canal Description of Procedure: see opertive summary Surgeon/Coin Machine Servicer Repairer: Amada Findings: as above Estimated Blood Loss: 75 cc Complications: none Progress Notes: return to ICU . Discontinue Heparin drip. Begin diabetic diet. Begin aspirin 81 mg daily and Xarelto 2. 5 mg BID Final Diagnosis: as above
[2022-04-06] MEDS ORDERED: ZESTRIL TAB 20 MG ONE (09:28)
[2022-04-06] MEDS: PROTONIX TAB 40 MG PO SCH (09:55)
[2022-04-06] MEDS: LEVEMIR SC SCH ×2 (09:55→20:24)
[2022-04-06] MEDS: ASPIRIN EC 81 MG PO SCH (09:55)
[2022-04-06] MEDS: ZESTRIL TAB 20 MG PO SCH (10:03)
[2022-04-06] MEDS: XARELTO PO SCH ×2 (10:03→20:24)
[2022-04-06] MEDS: NovoLIN R (or HumuLIN R) SUBCUT PRN (11:50)
--- NOTE | 2022-04-06 18:44 | PCM.PROG ---
Progress Note Progress Note for Day of Date of Exam: 04/06/22 Subjective Subjective: IS A 66 YEAR OLD MALE WHO WAS ADMITTED BY FOR TREATMENT OF RIGHT LOWER EXTREMITY CELLULITIS AND RIGHT LOWER EXTREMITY ISCHEMIA. HE HAD GANGRENOUS CHANGES TO THE RIGHT [address]TH TO[address] 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 STARTED PATIENT ON A HEPARIN DRIP ON ADMISSION AND PLANS FOR INTERVENTION OF THE LEG WITH POSSIBLE RIGHT 5TH TOE AMPUTATION FOR TODAY. I WAS CONSULTED FOR MEDICAL MANAGEMENT OF HIS CHRONIC MEDICAL CONDITIONS. PMH INCLUDES DM II, GERD, AND HTN. TODAY, HE CONTINUES WITH PAIN TO THE RIGHT LOWER EXTREMITY AT TIMES. WE INCREASED HIS GABAPENTIN TO TID. HE IS ALSO RECEIVING DILAUDID 2MG IV Q4H PRN FOR PAIN. CELLULITIS HAS NEARLY RESOLVED TO THE RIGHT FOOT. RIGHT 5TH TOE IS BLACKENED AND ISCHEMIC. HE IS SCHEDULED TO GO TO THE OR WITH THIS MORNING FOR AORTOGRAM, ARTERIOGRAM OF THE RIGHT LE, AND ATHERECTOMY. I AM IN AGREEMENT WITH HIS PLAN OF CARE. PATIENT IS MEDICALLY STABLE AND CLEARED FOR PROCEDURE. BLOOD GLUCOSE LEVELS SEEM TO BE CONTROLLED WITH CURRENT DOSE OF LEVEMIR AND SLIDING SCALE INSULIN. BLOOD PRESSURE HAS BEEN STABLE. WE WILL CONTINUE HIS IV FLUIDS, IV ANTIBITOTICS, AND OTHER PLAN OF CARE TODAY. OTHERWISE, WE WILL FOLLOW-UP WITH AM LABS AND CONTINUE TO MONITOR. TIME SPENT ON CLINICAL ASSESSMENT, REVIEWING LABS AND IMAGING, DECISION MAKING, AND DOCUMENTATION GREATER THAN 45 MINUTES. Past Medical Family Social History Allergies: Allergies No Known Drug Allergies [NKDA] Allergy (Verified 04/01/22 16:22) Review of Systems ROS: No change since H&P Vital Signs and I&O's Vital Signs: Temperature 98.0 F Pulse Rate [Left Radial] 71 Pulse Rate 83 Respiratory Rate 28 Blood Pressure [Right Arm] 132/65 Blood Pressure 156/71 O2 Sat by Pulse Oximetry 99 Intake and Output: Intake & Output 04/04/22 04/05/22 04/06/22 04/07/22 11:59 11:59 11:59 11:59 Intake Total 3893 / 3893 4040 / 4040 4640 / 4640 1080 / 1080 Output Total 3450 / 3450 2500 / 2500 2805 / 2805 750 / 750 Balance 443 / 443 1540 / 1540 1835 / 1835 330 / 330 Physical Exam Oriented: Normal Eyes: Normal Ear: Normal Nose: Normal Throat: Normal Respiratory: Normal Cardiovascular: Normal : Normal Auscultation: Bowel Sounds: Normal Tenderness: Normal Skin: Other (RIGHT 5TH TOE IS BLACKENED AND ISCHEMIC) Musculoskeletal: Normal Psychiatric: Normal Mood Description: Calm Affect: Normal Speech Pattern: Clear and Appropriate Laboratory and Diagnostics Result Diagrams: 04/06/22 04:20 04/06/22 04:20 Labs: Laboratory WBC 9.0 X10^3/uL (3.6-10.0) 04/06/22 04:20 RBC 4.61 X10^6/uL (4.7-6.0) L 04/06/22 04:20 Hgb 11.6 g/dL (13.5-18.0) L 04/06/22 04:20 Hct 33.5 % (42.0-54.0) L 04/06/22 04:20 MCV 72.5 fL (80.0-100.0) L 04/06/22 04:20 MCH 25.1 pg (27.0-34.0) L 04/06/22 04:20 MCHC 34.6 g/dL (33.0-35.0) 04/06/22 04:20 RDW 15.4 % (11.6-16.5) 04/06/22 04:20 Plt Count 290 X10^3/uL (150.0-450.0) 04/06/22 04:20 Plt Count Comment Adequate (ADEQUATE) 04/06/22 04:20 MPV 8.1 fL (7.4-11.0) 04/06/22 04:20 Neut % (Auto) 51.8 % (42.0-75.0) 04/06/22 04:20 Lymph % (Auto) 38.0 % (21.0-51.0) 04/06/22 04:20 [place] % (Auto) 5.8 % (0.0-13.0) 04/06/22 04:20 Eos % (Auto) 3.9 % (0.9-2.9) H 04/06/22 04:20 Baso % (Auto) 0.5 % (0.2-1.0) 04/06/22 04:20 Neut # (Auto) 4.7 x10^3/uL (2.2-4.8) 04/06/22 04:20 Lymph # (Auto) 3.4 X10^3/uL (1.3-2.9) H 04/06/22 04:20 [place] # (Auto) 0.5 x10^3/uL (0.3-0.8) 04/06/22 04:20 Eos # (Auto) 0.4 x10^3/uL (0.0-0.2) H 04/06/22 04:20 Baso # (Auto) 0.0 X10^3/uL (0.0-0.1) 04/06/22 04:20 Absolute Nucleated RBC 0.0 /100WBC 04/06/22 04:20 Plt Morphology Comment Normal (NORMAL) 04/06/22 04:20 RBC Morphology Abnormal (NORMAL) 04/06/22 04:20 Hypochromasia Slight A 04/06/22 04:20 Microcytosis Slight A 04/06/22 04:20 PT 15.5 SECONDS (11.8-14.3) 04/02/22 12:10 INR Target Range - 04/02/22 12:10 INR 1.27 (0.8-1.3) 04/02/22 12:10 APTT 87.1 SECONDS (22.9-36.5) H 04/06/22 04:20 PTT Comment - 04/06/22 04:20 Sodium 138 mmol/L (136-145) 04/06/22 04:20 Corrected Sodium 140 mmol/L (136-145) 04/06/22 04:20 Potassium 3.7 mmol/L (3.5-5.1) 04/06/22 04:20 Chloride 102 mmol/L (98-107) 04/06/22 04:20 Carbon Dioxide 28.9 mmol/L (21-32) 04/06/22 04:20 BUN 12 mg/dL (7-18) 04/06/22 04:20 Creatinine 0.94 mg/dL (0.70-1.30) 04/06/22 04:20 Est GFR (MDRD) Af Amer > 60 (>60) 04/06/22 04:20 Est GFR (MDRD) Non-Af > 60 (>60) 04/06/22 04:20 Glucose 169 mg/dL (65-99) H 04/06/22 04:20 POC Glucose (mg/dL) 148 mg/dL (65-99) H 04/06/22 16:08 Calcium 9.0 mg/dL (8.5-10.1) 04/06/22 04:20 Corrected Calcium 9.8 mg/dL (8.5-10.1) 04/06/22 04:20 Total Bilirubin 0.20 mg/dL (0.2-1.0) 04/06/22 04:20 AST 50 Units/L (15-37) H 04/06/22 04:20 ALT 85 Units/L (12-78) H 04/06/22 04:20 Alkaline Phosphatase 93 Units/L (46-116) 04/06/22 04:20 Total Protein 7.3 g/dL (6.4-8.2) 04/06/22 04:20 Albumin 3.0 g/dL (3.4-5.0) L 04/06/22 04:20 Globulin 4.3 g/dL (2.5-4.5) 04/06/22 04:20 Albumin/Globulin Ratio 0.7 Ratio (1.1-2.1) L 04/06/22 04:20 SARS-CoV-2 (PCR) Negative (NEGATIVE) 04/01/22 17:51 Plan (1) Atherosclerosis of [place] arteries of right leg with ulceration of other part of foot: Status: Acute Plan: Treatment for vascular surgery. (2) Pain of right lower extremity: Status: Acute Plan: CONTINUE DILAUDID (3) Diabetes 1.5, managed as type 1: Status: Acute Plan: Levemir 10 units twice daily, SSI, OTBS ACHS . (4) Essential (primary) hypertension: Status: Acute Plan: Continue lisinopril (5) Acid reflux: Status: Acute Plan: Continue pantoprazole
[2022-04-06] MEDS: SNACK - Diabetic Appropriate PO SCH (20:24)
[2022-04-07] MEDS: LR 1,000 ML IV 1,000 ML IV SCH ×2 (02:12→16:08)
[2022-04-07] MEDS: DILAUDID INJ IVP PRN ×2 (03:16→08:23)
[2022-04-07] MEDS ORDERED: GLUCOPHAGE ONE ×3 (04:29→18:29)
[2022-04-07 05:01] LABS: BASOPHILS % (AUTO) 0.4 % (0.2-1.0); EOSINOPHILS # (AUTO) 0.3 x10^3/uL (0.0-0.2); EOSINOPHILS % (AUTO) 3.5 % (0.9-2.9); HEMATOCRIT 32.7 % (42.0-54.0); HEMOGLOBIN 11.4 g/dL (13.5-18.0); LYMPHOCYTES # (AUTO) 2.8 X10^3/uL (1.3-2.9); LYMPHOCYTES % (AUTO) 29.1 % (21.0-51.0); MEAN CORPUSCULAR HEMOGLOBIN 25.1 pg (27.0-34.0); MEAN CORPUSCULAR HGB CONC 34.8 g/dL (33.0-35.0); MEAN CORPUSCULAR VOLUME 72.3 fL (80.0-100.0); MEAN PLATELET VOLUME 7.9 fL (7.4-11.0); MONOCYTES # (AUTO) 0.7 x10^3/uL (0.3-0.8); MONOCYTES % (AUTO) 7.2 % (0.0-13.0); NEUTROPHILS # (AUTO) 5.7 x10^3/uL (2.2-4.8); NEUTROPHILS % (AUTO) 59.8 % (42.0-75.0); RED BLOOD COUNT 4.53 X10^6/uL (4.7-6.0); RED CELL DISTRIBUTION WIDTH 15.7 % (11.6-16.5); WHITE BLOOD COUNT 9.5 X10^3/uL (3.6-10.0)
[2022-04-07 05:16] LABS: ALANINE AMINOTRANSFERASE 101 Units/L (12-78); ALKALINE PHOSPHATASE 84 Units/L (46-116); ASPARTATE AMINO TRANSFERASE 47 Units/L (15-37); BLOOD UREA NITROGEN 13 mg/dL (7-18); CALCIUM 8.8 mg/dL (8.5-10.1); CARBON DIOXIDE 28.6 mmol/L (21-32); CHLORIDE 104 mmol/L (98-107); COR CA(FOR HYPOALB) 9.6 mg/dL (8.5-10.1); CREATININE 1.05 mg/dL (0.70-1.30); SODIUM 140 mmol/L (136-145); TOTAL PROTEIN 7.2 g/dL (6.4-8.2); eGFR NON BLACK RACES > 60 (>60)
[2022-04-07 05:21] LABS: HYPOCHROMASIA SLIGHT; MICROCYTOSIS SLIGHT; PLATELET MORPHOLOGY COMMENT NORMAL (NORMAL)
[2022-04-07] MEDS: NEURONTIN CAP 300 MG PO SCH ×2 (05:24→14:40)
[2022-04-07] MEDS: ZOSYN VIAL 3.375 GRAMS 3.375 G in NS 100 ML IV 100 ML IV SCH ×2 (05:25→14:40)
[2022-04-07] MEDS: GLUCOPHAGE PO SCH ×2 (06:10→18:24)
[2022-04-07] MEDS: AMARYL TAB 4 MG PO SCH (06:11)
[2022-04-07] MEDS ORDERED: ZESTRIL TAB 20 MG ONE (08:07)
[2022-04-07] MEDS: PROTONIX TAB 40 MG PO SCH (08:20)
[2022-04-07] MEDS: ASPIRIN EC 81 MG PO SCH (08:20)
[2022-04-07] MEDS: LEVEMIR SC SCH (08:21)
[2022-04-07] MEDS: XARELTO PO SCH (08:22)
[2022-04-07] MEDS: ZESTRIL TAB 20 MG PO SCH (09:30)
[2022-04-07] MEDS: NovoLIN R (or HumuLIN R) SUBCUT PRN (11:57)
[2022-04-07 17:52] VITALS: BP 159/93
--- NOTE | 2022-04-07 21:30 | W.DIS.FURT ---
Summary of Discharge Discharge Summary of Date Date of Exam: 04/07/22 Admission Date Date of Admission: 04/01/22 Admission Diagnosis Hospital Course: This patient is a 66 year old male who presented to my office on April 01 with rest pain and gangrenous changes of the right fifth toe with cellulitis of the right foot. He was admitted at that time and placed on IV antibiotics. CT angiogram was obtained showing severe disease of the right superficial femoral artery with complete total occlusion of the distal right superficial femoral artery with evidence of possible trifurcation level disease as well of the right leg. Patient has a history of diabetes. He underwent treatment with IV antibiotics and consultation with Dr. Anoop Jean for better control of his blood sugars. On April 06 he was taken to the operating suite where he underwent atherectomy and drug coated balloon angioplasty of the severely diseased right superficial femoral artery. He had two vessel runoff via a normal but small right posterior tibial artery and an intact right peroneal artery . The anterior tibial artery was occluded just beyond its takeoff.He has done well. He has had resolution of rest pain of the right leg and has a biphasic Doppler signal in the right posterior tibial artery . He will be discharged home on his usual medications plus Percocet 5 mg tablets, one every six hours PRN pain, # 30, Xarelto 2.5 mg po BID, and aspirin 81 mg po daily. He will follow up with me in one week. He may require ray amputation of the right 5th toe in the near future Vital Signs: Vital Signs (72 hours) 04/06/22 01:35 04/04/22 22:00 04/04/22 23:00 Temperature 97.8 F Pulse Rate 80 77 71 Respiratory Rate 14 17 14 Blood Pressure 147/67 136/63 118/55 O2 Sat by Pulse Oximetry 96 97 96 Oxygen Delivery Method Room Air Room Air 04/05/22 00:00 04/05/22 01:00 04/05/22 02:00 Temperature 98.2 F Pulse Rate 72 73 74 Respiratory Rate 15 15 14 Blood Pressure 138/63 152/72 151/72 O2 Sat by Pulse Oximetry 96 96 94 L Oxygen Delivery Method Room Air Room Air Room Air 04/05/22 03:00 04/05/22 04:00 04/05/22 05:00 Temperature 97.7 F Pulse Rate 79 83 73 Respiratory Rate 16 20 15 Blood Pressure 130/65 143/67 120/60 O2 Sat by Pulse Oximetry 97 99 97 Oxygen Delivery Method Room Air Room Air Room Air 04/05/22 06:00 04/05/22 07:00 04/05/22 07:00 Temperature Pulse Rate 71 82 Respiratory Rate 14 18 Blood Pressure 140/68 163/74 O2 Sat by Pulse Oximetry 97 98 Oxygen Delivery Method Room Air Room Air Room Air 04/05/22 08:00 04/05/22 09:00 04/05/22 10:17 Temperature 97.6 F Pulse Rate 70 89 Respiratory Rate 18 20 20 Blood Pressure 133/64 131/71 O2 Sat by Pulse Oximetry 98 98 Oxygen Delivery Method Room Air Room Air 04/05/22 10:00 04/05/22 10:47 04/05/22 11:00 Temperature Pulse Rate 97 H 80 Respiratory Rate 18 20 20 Blood Pressure 148/87 141/74 O2 Sat by Pulse Oximetry 98 98 Oxygen Delivery Method Room Air Room Air 04/05/22 12:00 04/05/22 13:00 04/05/22 14:00 Temperature 98.0 F Pulse Rate 75 80 96 H Respiratory Rate 18 20 22 Blood Pressure 135/68 128/58 140/89 O2 Sat by Pulse Oximetry 95 98 98 Oxygen Delivery Method Room Air Room Air Room Air 04/05/22 15:00 04/05/22 16:00 04/05/22 16:53 Temperature 98.5 F Pulse Rate 92 H 79 Respiratory Rate 20 18 20 Blood Pressure 155/70 155/75 O2 Sat by Pulse Oximetry 98 97 Oxygen Delivery Method Room Air Room Air 04/05/22 17:00 04/05/22 17:23 04/05/22 18:00 Temperature Pulse Rate 83 81 Respiratory Rate 20 20 22 Blood Pressure 142/71 141/76 O2 Sat by Pulse Oximetry 97 98 Oxygen Delivery Method Room Air Room Air 04/05/22 19:00 04/05/22 19:00 04/05/22 20:00 Temperature 98.2 F Pulse Rate 88 85 Respiratory Rate 21 22 Blood Pressure 168/76 120/64 O2 Sat by Pulse Oximetry 98 97 Oxygen Delivery Method Room Air Room Air Room Air 04/05/22 21:00 04/05/22 22:00 04/05/22 23:00 Temperature Pulse Rate 88 76 85 Respiratory Rate 18 20 23 Blood Pressure 164/78 149/73 176/85 O2 Sat by Pulse Oximetry 99 98 98 Oxygen Delivery Method Room Air Room Air Room Air 04/06/22 00:17 04/06/22 00:00 04/06/22 00:47 Temperature 97.8 F Pulse Rate 87 Respiratory Rate 21 22 22 Blood Pressure 174/98 O2 Sat by Pulse Oximetry 100 Oxygen Delivery Method Room Air 04/06/22 01:00 04/06/22 02:00 04/06/22 03:00 Temperature Pulse Rate 80 75 72 Respiratory Rate 14 18 15 Blood Pressure 147/67 152/74 142/73 O2 Sat by Pulse Oximetry 96 97 97 Oxygen Delivery Method Room Air Room Air Room Air 04/06/22 04:00 04/06/22 05:00 04/06/22 06:00 Temperature 97.8 F Pulse Rate 78 81 79 Respiratory Rate 16 12 16 Blood Pressure 153/72 148/75 131/69 O2 Sat by Pulse Oximetry 99 99 100 Oxygen Delivery Method Room Air Room Air Room Air 04/06/22 07:12 04/06/22 10:31 04/06/22 07:00 Temperature Pulse Rate 79 Respiratory Rate 16 22 Blood Pressure 151/76 O2 Sat by Pulse Oximetry 100 Oxygen Delivery Method Room Air Room Air 04/06/22 06:45 04/06/22 09:00 04/06/22 09:04 Temperature 98.1 F Pulse Rate 71 78 Respiratory Rate 18 Blood Pressure 180/84 O2 Sat by Pulse Oximetry 99 100 Oxygen Delivery Method 04/06/22 09:04 04/06/22 09:06 04/06/22 09:06 Temperature Pulse Rate 73 72 Respiratory Rate 19 19 Blood Pressure 165/86 O2 Sat by Pulse Oximetry 100 100 Oxygen Delivery Method 04/06/22 09:15 04/06/22 09:15 04/06/22 09:30 Temperature Pulse Rate 71 Respiratory Rate 16 Blood Pressure 160/84 163/87 O2 Sat by Pulse Oximetry 100 Oxygen Delivery Method 04/06/22 09:30 04/06/22 09:45 04/06/22 09:45 Temperature Pulse Rate 64 90 Respiratory Rate 20 23 Blood Pressure 145/81 O2 Sat by Pulse Oximetry 100 100 Oxygen Delivery Method 04/06/22 10:00 04/06/22 10:00 04/06/22 10:15 Temperature Pulse Rate 73 Respiratory Rate 24 Blood Pressure 149/73 167/78 O2 Sat by Pulse Oximetry 100 Oxygen Delivery Method 04/06/22 10:15 04/06/22 10:30 04/06/22 10:30 Temperature Pulse Rate 71 74 Respiratory Rate 18 17 Blood Pressure 160/78 O2 Sat by Pulse Oximetry 99 97 Oxygen Delivery Method 04/06/22 10:45 04/06/22 10:45 04/06/22 11:00 Temperature Pulse Rate 69 Respiratory Rate 16 Blood Pressure 145/71 171/83 O2 Sat by Pulse Oximetry 100 Oxygen Delivery Method 04/06/22 11:00 04/06/22 11:15 04/06/22 11:15 Temperature Pulse Rate 81 86 Respiratory Rate 15 25 H Blood Pressure 167/81 O2 Sat by Pulse Oximetry 99 100 Oxygen Delivery Method 04/06/22 11:01 04/06/22 11:30 04/06/22 11:30 Temperature Pulse Rate 79 Respiratory Rate 20 20 Blood Pressure 145/70 O2 Sat by Pulse Oximetry 98 Oxygen Delivery Method 04/06/22 11:45 04/06/22 11:46 04/06/22 11:46 Temperature 97.9 F Pulse Rate 77 75 Respiratory Rate 27 H 18 Blood Pressure 154/69 O2 Sat by Pulse Oximetry 98 100 Oxygen Delivery Method 04/06/22 12:00 04/06/22 12:00 04/06/22 12:15 Temperature Pulse Rate 76 Respiratory Rate 18 Blood Pressure 155/73 157/75 O2 Sat by Pulse Oximetry 97 Oxygen Delivery Method 04/06/22 12:15 04/06/22 12:30 04/06/22 12:31 Temperature Pulse Rate 81 82 Respiratory Rate 22 25 H Blood Pressure 155/102 O2 Sat by Pulse Oximetry 100 99 Oxygen Delivery Method 04/06/22 12:31 04/06/22 12:45 04/06/22 12:45 Temperature Pulse Rate 85 80 Respiratory Rate 28 H 30 H Blood Pressure 171/83 O2 Sat by Pulse Oximetry 97 100 Oxygen Delivery Method 04/06/22 13:00 04/06/22 13:00 04/06/22 13:15 Temperature Pulse Rate 81 81 Respiratory Rate 25 H 24 Blood Pressure 158/84 O2 Sat by Pulse Oximetry 100 99 Oxygen Delivery Method 04/06/22 13:16 04/06/22 13:16 04/06/22 13:30 Temperature Pulse Rate 81 Respiratory Rate 26 H Blood Pressure 139/63 149/70 O2 Sat by Pulse Oximetry 99 Oxygen Delivery Method 04/06/22 13:30 07/05/22 13:45 04/06/22 13:45 Temperature Pulse Rate 84 86 Respiratory Rate 24 24 Blood Pressure 145/67 O2 Sat by Pulse Oximetry 100 99 Oxygen Delivery Method 04/06/22 14:00 04/06/22 14:01 04/06/22 14:01 Temperature Pulse Rate 88 89 Respiratory Rate 30 H 29 H Blood Pressure 155/81 O2 Sat by Pulse Oximetry 100 100 Oxygen Delivery Method 04/06/22 14:15 04/06/22 14:15 04/06/22 14:30 Temperature Pulse Rate 83 Respiratory Rate 28 H Blood Pressure 189/80 166/80 O2 Sat by Pulse Oximetry 100 Oxygen Delivery Method 04/06/22 14:30 04/06/22 16:14 04/06/22 15:12 Temperature Pulse Rate 87 96 H Respiratory Rate 26 H 20 30 H Blood Pressure O2 Sat by Pulse Oximetry 100 100 Oxygen Delivery Method 04/06/22 15:14 04/06/22 15:14 04/06/22 15:15 Temperature Pulse Rate 83 83 Respiratory Rate 21 23 Blood Pressure 172/81 O2 Sat by Pulse Oximetry 98 98 Oxygen Delivery Method 04/06/22 15:30 04/06/22 15:45 04/06/22 16:00 Temperature 98.0 F Pulse Rate 78 82 Respiratory Rate 21 25 H Blood Pressure 162/75 O2 Sat by Pulse Oximetry 98 95 Oxygen Delivery Method 04/06/22 16:00 04/06/22 16:15 04/06/22 16:43 Temperature Pulse Rate 80 85 Respiratory Rate 15 24 20 Blood Pressure O2 Sat by Pulse Oximetry 97 100 Oxygen Delivery Method 04/06/22 16:30 04/06/22 16:45 04/06/22 17:00 Temperature Pulse Rate 81 81 Respiratory Rate 19 16 Blood Pressure 177/86 O2 Sat by Pulse Oximetry 98 99 Oxygen Delivery Method 04/06/22 17:00 04/06/22 17:15 04/06/22 17:30 Temperature Pulse Rate 78 73 73 Respiratory Rate 23 22 33 H Blood Pressure O2 Sat by Pulse Oximetry 98 99 99 Oxygen Delivery Method 04/06/22 17:45 04/06/22 18:00 04/06/22 18:01 Temperature Pulse Rate 73 84 Respiratory Rate 25 H 33 H Blood Pressure 156/71 O2 Sat by Pulse Oximetry 99 98 Oxygen Delivery Method 04/06/22 18:01 07/05/22 19:00 04/06/22 19:00 Temperature Pulse Rate 83 80 Respiratory Rate 28 H 32 H Blood Pressure 160/74 O2 Sat by Pulse Oximetry 99 98 Oxygen Delivery Method Room Air Room Air 04/06/22 20:25 04/06/22 20:00 04/06/22 20:55 Temperature 98.1 F Pulse Rate 83 Respiratory Rate 20 16 20 Blood Pressure 178/82 O2 Sat by Pulse Oximetry 99 Oxygen Delivery Method Room Air 04/06/22 21:00 04/06/22 22:00 04/06/22 23:00 Temperature Pulse Rate 78 70 71 Respiratory Rate 15 18 16 Blood Pressure 158/75 149/70 154/78 O2 Sat by Pulse Oximetry 99 100 97 Oxygen Delivery Method Room Air Room Air Room Air 04/07/22 00:00 04/07/22 01:00 04/07/22 02:00 Temperature 98.1 F Pulse Rate 77 77 77 Respiratory Rate 17 16 22 Blood Pressure 135/62 155/76 166/79 O2 Sat by Pulse Oximetry 93 L 97 97 Oxygen Delivery Method Room Air Room Air Room Air 04/07/22 03:16 04/07/22 03:00 04/07/22 03:46 Temperature Pulse Rate 73 Respiratory Rate 23 21 20 Blood Pressure 176/90 O2 Sat by Pulse Oximetry 99 Oxygen Delivery Method Room Air 04/07/22 04:00 04/07/22 05:00 04/07/22 06:00 Temperature 98.0 F Pulse Rate 79 79 78 Respiratory Rate 16 18 23 Blood Pressure 141/67 156/73 149/78 O2 Sat by Pulse Oximetry 97 99 99 Oxygen Delivery Method Room Air Room Air Room Air 04/07/22 07:00 04/06/22 22:30 04/06/22 22:45 Temperature Pulse Rate 78 72 Respiratory Rate 18 17 Blood Pressure O2 Sat by Pulse Oximetry 100 98 Oxygen Delivery Method Nasal Cannula 04/06/22 23:00 04/06/22 23:00 04/06/22 23:15 Temperature Pulse Rate 77 73 Respiratory Rate 16 16 Blood Pressure 154/78 O2 Sat by Pulse Oximetry 97 97 Oxygen Delivery Method 04/06/22 23:30 04/06/22 23:45 04/07/22 00:00 Temperature Pulse Rate 73 74 Respiratory Rate 16 16 Blood Pressure 135/62 O2 Sat by Pulse Oximetry 97 97 Oxygen Delivery Method 04/07/22 00:00 04/07/22 00:15 04/07/22 00:30 Temperature Pulse Rate 76 105 H 75 Respiratory Rate 16 27 H 16 Blood Pressure O2 Sat by Pulse Oximetry 97 99 96 Oxygen Delivery Method 04/07/22 00:45 04/07/22 01:00 04/07/22 01:00 Temperature Pulse Rate 72 80 Respiratory Rate 17 16 Blood Pressure 155/76 O2 Sat by Pulse Oximetry 97 97 Oxygen Delivery Method 04/07/22 01:15 04/07/22 01:30 04/07/22 01:45 Temperature Pulse Rate 71 71 75 Respiratory Rate 16 16 16 Blood Pressure O2 Sat by Pulse Oximetry 98 98 99 Oxygen Delivery Method 04/07/22 02:00 04/07/22 02:00 04/07/22 02:15 Temperature Pulse Rate 81 69 Respiratory Rate 22 17 Blood Pressure 166/79 O2 Sat by Pulse Oximetry 97 98 Oxygen Delivery Method 04/07/22 02:30 04/07/22 02:45 04/07/22 03:00 Temperature Pulse Rate 80 74 84 Respiratory Rate 16 16 17 Blood Pressure O2 Sat by Pulse Oximetry 98 99 98 Oxygen Delivery Method 04/07/22 03:01 04/07/22 03:01 04/07/22 03:15 Temperature Pulse Rate 81 88 Respiratory Rate 17 21 Blood Pressure 176/90 O2 Sat by Pulse Oximetry 98 99 Oxygen Delivery Method 04/07/22 03:30 04/07/22 03:45 04/07/22 04:00 Temperature Pulse Rate 85 79 Respiratory Rate 18 14 Blood Pressure 141/67 O2 Sat by Pulse Oximetry 99 97 Oxygen Delivery Method 04/07/22 04:00 04/07/22 04:15 04/07/22 04:30 Temperature Pulse Rate 79 79 79 Respiratory Rate 17 16 16 Blood Pressure O2 Sat by Pulse Oximetry 97 97 98 Oxygen Delivery Method 04/07/22 04:45 04/07/22 05:00 04/07/22 05:00 Temperature Pulse Rate 74 72 Respiratory Rate 15 15 Blood Pressure 156/73 O2 Sat by Pulse Oximetry 98 97 Oxygen Delivery Method 04/07/22 05:15 04/07/22 05:30 04/07/22 05:45 Temperature Pulse Rate 74 72 79 Respiratory Rate 18 15 20 Blood Pressure O2 Sat by Pulse Oximetry 97 98 99 Oxygen Delivery Method 04/07/22 06:00 04/07/22 06:00 04/07/22 06:15 Temperature Pulse Rate 76 76 Respiratory Rate 21 20 Blood Pressure 149/78 O2 Sat by Pulse Oximetry 98 99 Oxygen Delivery Method 04/07/22 06:30 04/07/22 06:45 04/07/22 07:00 Temperature Pulse Rate 75 82 Respiratory Rate 19 29 H Blood Pressure 150/72 O2 Sat by Pulse Oximetry 99 98 Oxygen Delivery Method 04/07/22 07:00 04/07/22 07:15 04/07/22 07:30 Temperature 98.3 F Pulse Rate 72 70 83 Respiratory Rate 15 7 L 35 H Blood Pressure O2 Sat by Pulse Oximetry 96 96 98 Oxygen Delivery Method 04/07/22 07:45 04/07/22 08:00 04/07/22 08:00 Temperature Pulse Rate 91 H 75 Respiratory Rate 27 H 17 Blood Pressure 138/65 O2 Sat by Pulse Oximetry 96 96 Oxygen Delivery Method 04/07/22 08:23 04/07/22 08:15 04/07/22 08:30 Temperature Pulse Rate 85 90 Respiratory Rate 22 28 H 33 H Blood Pressure O2 Sat by Pulse Oximetry 96 99 Oxygen Delivery Method 04/07/22 09:00 04/07/22 09:00 04/07/22 09:30 Temperature Pulse Rate 92 H 85 Respiratory Rate 15 33 H Blood Pressure 142/68 O2 Sat by Pulse Oximetry 98 98 Oxygen Delivery Method 04/07/22 09:45 04/07/22 10:00 04/07/22 10:00 Temperature Pulse Rate 90 84 Respiratory Rate 25 H 22 Blood Pressure 138/63 O2 Sat by Pulse Oximetry 97 95 Oxygen Delivery Method 04/07/22 08:53 04/07/22 10:15 04/07/22 10:30 Temperature Pulse Rate 85 101 H Respiratory Rate 20 49 H 31 H Blood Pressure O2 Sat by Pulse Oximetry 98 Oxygen Delivery Method 04/07/22 11:00 04/07/22 11:00 04/07/22 11:30 Temperature Pulse Rate 78 79 Respiratory Rate 20 25 H Blood Pressure 147/72 O2 Sat by Pulse Oximetry Oxygen Delivery Method 04/07/22 11:45 04/07/22 12:00 04/07/22 12:15 Temperature 98.1 F Pulse Rate 85 80 73 Respiratory Rate 19 19 22 Blood Pressure O2 Sat by Pulse Oximetry Oxygen Delivery Method 04/07/22 12:30 07/06/22 12:45 04/07/22 13:00 Temperature Pulse Rate 78 77 87 Respiratory Rate 29 H 27 H 34 H Blood Pressure O2 Sat by Pulse Oximetry Oxygen Delivery Method 04/07/22 13:30 04/07/22 13:45 04/07/22 13:52 Temperature Pulse Rate 81 89 Respiratory Rate 24 39 H Blood Pressure 156/72 O2 Sat by Pulse Oximetry Oxygen Delivery Method 04/07/22 13:52 04/07/22 14:00 04/07/22 14:00 Temperature Pulse Rate 74 81 Respiratory Rate 19 17 Blood Pressure 162/77 O2 Sat by Pulse Oximetry 99 96 Oxygen Delivery Method 04/07/22 14:15 04/07/22 14:30 04/07/22 14:45 Temperature Pulse Rate 77 80 75 Respiratory Rate 18 18 18 Blood Pressure O2 Sat by Pulse Oximetry 97 98 97 Oxygen Delivery Method 04/07/22 15:00 04/07/22 15:01 04/07/22 15:04 Temperature Pulse Rate 86 Respiratory Rate 18 Blood Pressure 156/105 143/70 O2 Sat by Pulse Oximetry 98 Oxygen Delivery Method 04/07/22 15:04 04/07/22 15:15 04/07/22 15:30 Temperature Pulse Rate 89 76 86 Respiratory Rate 21 17 21 Blood Pressure O2 Sat by Pulse Oximetry 100 97 100 Oxygen Delivery Method 04/07/22 16:00 04/07/22 16:00 04/07/22 16:15 Temperature 98.1 F Pulse Rate 81 83 Respiratory Rate 20 24 Blood Pressure 162/80 O2 Sat by Pulse Oximetry 99 99 Oxygen Delivery Method 04/07/22 16:30 04/07/22 16:45 04/07/22 17:00 Temperature Pulse Rate 79 81 79 Respiratory Rate 20 21 21 Blood Pressure O2 Sat by Pulse Oximetry 95 52 L 93 L Oxygen Delivery Method 04/07/22 17:30 04/07/22 17:36 04/07/22 17:45 Temperature Pulse Rate 73 91 H Respiratory Rate 20 37 H Blood Pressure 159/93 O2 Sat by Pulse Oximetry 99 Oxygen Delivery Method 04/07/22 18:00 Temperature Pulse Rate 81 Respiratory Rate 37 H Blood Pressure O2 Sat by Pulse Oximetry 100 Oxygen Delivery Method Labs: Laboratory Last Values WBC 9.5 X10^3/uL (3.6-10.0) 04/07/22 03:35 RBC 4.53 X10^6/uL (4.7-6.0) L 04/07/22 03:35 Hgb 11.4 g/dL (13.5-18.0) L 04/07/22 03:35 Hct 32.7 % (42.0-54.0) L 04/07/22 03:35 MCV 72.3 fL (80.0-100.0) L 04/07/22 03:35 MCH 25.1 pg (27.0-34.0) L 04/07/22 03:35 MCHC 34.8 g/dL (33.0-35.0) 04/07/22 03:35 RDW 15.7 % (11.6-16.5) 04/07/22 03:35 Plt Count 269 X10^3/uL (150.0-450.0) 04/07/22 03:35 Plt Count Comment Adequate (ADEQUATE) 04/07/22 03:35 MPV 7.9 fL (7.4-11.0) 04/07/22 03:35 Neut % (Auto) 59.8 % (42.0-75.0) 04/07/22 03:35 Lymph % (Auto) 29.1 % (21.0-51.0) 04/07/22 03:35 [place] % (Auto) 7.2 % (0.0-13.0) 04/07/22 03:35 Eos % (Auto) 3.5 % (0.9-2.9) H 04/07/22 03:35 Baso % (Auto) 0.4 % (0.2-1.0) 04/07/22 03:35 Neut # (Auto) 5.7 x10^3/uL (2.2-4.8) H 04/07/22 03:35 Lymph # (Auto) 2.8 X10^3/uL (1.3-2.9) 04/07/22 03:35 [place] # (Auto) 0.7 x10^3/uL (0.3-0.8) 04/07/22 03:35 Eos # (Auto) 0.3 x10^3/uL (0.0-0.2) H 04/07/22 03:35 Baso # (Auto) 0.0 X10^3/uL (0.0-0.1) 04/07/22 03:35 Absolute Nucleated RBC 0.0 /100WBC 04/07/22 03:35 Plt Morphology Comment Normal (NORMAL) 04/07/22 03:35 RBC Morphology Abnormal (NORMAL) 04/07/22 03:35 Hypochromasia Slight A 04/07/22 03:35 Microcytosis Slight A 04/07/22 03:35 PT 15.5 SECONDS (11.8-14.3) 04/02/22 12:10 INR Target Range - 04/02/22 12:10 INR 1.27 (0.8-1.3) 04/02/22 12:10 APTT 32.9 SECONDS (22.9-36.5) 04/07/22 03:35 PTT Comment - 04/07/22 03:35 Sodium 140 mmol/L (136-145) 04/07/22 03:35 Corrected Sodium TNP 04/07/22 03:35 Potassium 4.0 mmol/L (3.5-5.1) 04/07/22 03:35 Chloride 104 mmol/L (98-107) 04/07/22 03:35 Carbon Dioxide 28.6 mmol/L (21-32) 04/07/22 03:35 BUN 13 mg/dL (7-18) 04/07/22 03:35 Creatinine 1.05 mg/dL (0.70-1.30) 04/07/22 03:35 Est GFR (MDRD) Af Amer > 60 (>60) 04/07/22 03:35 Est GFR (MDRD) Non-Af > 60 (>60) 04/07/22 03:35 Glucose 104 mg/dL (65-99) H 04/07/22 03:35 POC Glucose (mg/dL) 200 mg/dL (65-99) H 04/07/22 15:38 Calcium 8.8 mg/dL (8.5-10.1) 04/07/22 03:35 Corrected Calcium 9.6 mg/dL (8.5-10.1) 04/07/22 03:35 Total Bilirubin 0.30 mg/dL (0.2-1.0) 04/07/22 03:35 AST 47 Units/L (15-37) H 04/07/22 03:35 ALT 101 Units/L (12-78) H 04/07/22 03:35 Alkaline Phosphatase 84 Units/L (46-116) 04/07/22 03:35 Total Protein 7.2 g/dL (6.4-8.2) 04/07/22 03:35 Albumin 3.0 g/dL (3.4-5.0) L 04/07/22 03:35 Globulin 4.2 g/dL (2.5-4.5) 04/07/22 03:35 Albumin/Globulin Ratio 0.7 Ratio (1.1-2.1) L 04/07/22 03:35 SARS-CoV-2 (PCR) Negative (NEGATIVE) 04/01/22 17:51 Reason For Visit: RIGHT LOWER EXT CELLULITIS, RIGHT LOWER EXT Discharge Date Discharge Date: 04/07/22 Discharge Diagnosis All Active Problems (Updated 04/03/22 @ 13:00 by ANOOP DORMAN) Pain of right lower extremity (Acute) Acid reflux (Acute) Essential (primary) hypertension (Acute) Diabetes 1.5, 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 Pt is to keep follow up appointment as instructed and take medications as ordered. Discharge Medications Discharge Medications: No Known Drug Allergies [NKDA] Allergy (Verified 04/01/22 16:22) CONTINUE taking the following medications buprenorphine HCl 8 mg sublingual tablet 8 mg sublingual TID PRN 04/01/22 [History] gabapentin 100 mg capsule 1 cap PO DAILY 04/01/22 [History] glimepiride 4 mg tablet 1 tab PO DAILY 04/01/22 [History] lansoprazole 30 mg capsule,delayed release 1 cap PO QDAY 04/01/22 [History] lansoprazole 30 mg capsule,delayed release 1 cap PO QDAY 04/01/22 [History] lisinopril 20 mg tablet 1 tab PO DAILY 04/01/22 [History] metformin 500 mg tablet,extended release 24 hr 2 tab PO BID 04/01/22 [History] New Prescriptions aspirin 81 mg capsule 81 mg PO QDAY #90 caps 04/07/22 [Rx] oxycodone-acetaminophen 5 mg-325 mg tablet (Percocet) 1 tab PO Q6H PRN #30 tabs 04/07/22 [Rx] rivaroxaban 2.5 mg tablet (Xarelto) 2.5 mg PO BID #60 tabs 04/07/22 [Rx] Discharge Disposition Assessment: see hospital course Discharge Plan Discharge Plan Hospital Course: This patient is a 66 year old male who presented to my office on April 01 with rest pain and gangrenous changes of the right fifth toe with cellulitis of the right foot. He was admitted at that time and placed on IV antibiotics. CT angiogram was obtained showing severe disease of the right superficial femoral artery with complete total occlusion of the distal right superficial femoral artery with evidence of possible trifurcation level disease as well of the right leg. Patient has a history of diabetes. He underwent treatment with IV antibiotics and consultation with Dr. Anoop Jean for better control of his blood sugars. On April 06 he was taken to the operating suite where he underwent atherectomy and drug coated balloon angioplasty of the severely diseased right superficial femoral artery. He had two vessel runoff via a normal but small right posterior tibial artery and an intact right peroneal artery . The anterior tibial artery was occluded just beyond its takeoff.He has done well. He has had resolution of rest pain of the right leg and has a biphasic Doppler signal in the right posterior tibial artery . He will be discharged home on his usual medications plus Percocet 5 mg tablets, one every six hours PRN pain, # 30, Xarelto 2.5 mg po BID, and aspirin 81 mg po daily. He will follow up with me in one week. He may require ray amputation of the right 5th toe in the near future Patient Disposition: 01 HOME, SELF-CARE Condition: Stable Health Concerns: Post Hospitalization: new medications and changes needed to prevent readmission or further decline. Pt educated and given instructions on all concerns. Care Plan Goals: Problem: Infection Goal: Temperature within normal limits. Resolved infection. Instructions: Follow provided instructions. Follow up with primary physician as directed. Contact primary care physician or report to the closest Emergency Room if condition worsens. Plan of Treatment: Continue with present treatment and follow up plan. Pt is to keep follow up appointment as instructed and take medications as ordered. Assessment: see hospital course Prescription drug monitoring program results: PDMP reviewed and no concerns identified Prescriptions: New oxycodone-acetaminophen [Percocet] 5-325 mg tablet 1 tab PO Q6H MDD 4 PRNQty: 30 0RF Xarelto 2.5 mg tablet 2.5 mg PO BID Qty: 60 0RF aspirin 81 mg capsule 81 mg PO QDAY Qty: 90 0RF Continued lisinopril 20 mg tablet 1 tab PO DAILY Label Comments: [NO ORIGINAL SIG] gabapentin 100 mg capsule 1 cap PO DAILY Label Comments: [NO ORIGINAL SIG] metformin 500 mg tablet extended release 24 hr 2 tab PO BID glimepiride 4 mg tablet 1 tab PO DAILY Label Comments: [NO ORIGINAL SIG] lansoprazole 30 mg capsule,delayed release(DR/EC) 1 cap PO QDAY lansoprazole 30 mg capsule,delayed release(DR/EC) 1 cap PO QDAY buprenorphine HCl 8 mg Tablet, Sublingual 8 mg SUBLINGUAL TID PRN Discontinued sulfamethoxazole-trimethoprim 800-160 mg tablet 1 tab PO BID Follow ups/Referrals Follow ups/Referrals: Ori Badillo [STAFF PHYSICIAN] - 04/14/22 10:30 am Instructions Instructions: Angiogram, Rivaroxaban oral tablets, Gangrene, Atherosclerosis, Type 1 Diabetes Mellitus, Diagnosis, Adult, [id number], Angiogram, Care After, [id number], Hypertension, Adult, [id number] Stand Alone Forms: Precautions for [address] [facility], Patient Portal, Social Distancing Patient Education Addl Reference Links: Cellulitis, Adult [email or web address] [email or web address] .[email or web address] [email or web address]=[email or web address]
--- NOTE | 2022-04-08 22:41 | DR.OPNOTE ---
OP NOTE Pre-Op Diagnosis: Rest pain , gangrene right foot. Post-Op Diagnosis: same Procedure Date Date Of Procedure: 04/06/22 Procedure: PROCEDURE : AORTOGRAM , ARTERIOGRAM RIGHT LOWER EXTREMITY, ATHERECTOMY AND DRUG COATED BALLOON ANGIOPLASTY OF THE RIGHT DISTAL SUPERFICIAL FEMORAL ARTERY NARRATIVE : The patient was taken to the operative suite and placed in the supine position. He was given intravenous sedation which was supervised by myself. The left groin and entire right leg were prepped and draped in sterile fashion. Time out for the procedure obtained. Ultrasound used to identify the left common femoral artery and the skin overlying it infiltrated with 0. 5% Marcaine . Ultrasound used to guide puncture of the left femoral artery and a 0. 012 inch guidewire placed. Incision made over the guide wire at the skin edge with a number 11 knife blade and then micro sheath placed over the guide wire into the left femoral artery . The small guidewire exchanged for a 0. 035 inch Advantage glidewire and the micro sheath exchanged for a 5 Fr vascular sheath . Over the wire I placed an aortic catheter and using power injection and performed a diagnostic aortogram showing normal aorta and normal iliac arteries bilaterally . Aortic catheter was used to steer the wire down the right iliac artery . 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 The popliteal artery was intact as was the tibial peroneal trunk. There was two vessel run off by the right posterior tibial artery and the right peroneal artery. The patient was given 5000 units of heparin. 5 Fr sheath then exchanged for a 7 Fr destination sheet parked in the right femoral artery. I exchanged the 0. 035 inch Advantage glidewire for a 0. 014 inch guide wire which was selectively placed in the right posterior tibial artery . Over this guidewire we placed the Jet stream atherectomy device and performed atherectomy of the entire distal superficial femoral artery of the right leg into the popliteal artery. This was done with two passes with the blades down and one pass with the blades up. I then placed a 6 mmx 200 mm [employer] drug-coated balloon over the area of disease and inflated it for 3 minutes. This was deflated and the balloon removed. Post- procedure arteriogram confirmed excellent results of the treated vessel and still with two vessel runoff. The destination sheath was pulled back into the aorta and the 0. 014 inch guide wire exchanged for a 0. 035 inch Advantage glidewire . The destination sheath removed and over the wire we placed an Angio seal device which was used to close the puncture of the left common femo ral artery. The patient was given 30 mg of IV Protamine . The patient tolerated the procedure very well and was taking to same day surgery. 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 Type of Fluids Used:: Lactated Ringers Urine output: 300 cc EBL: 25 cc Complications:: none Needle/Sponge Count:: correct Disposition/Condition: Pt. tolerated procedure without difficulty. Taken to [facility] in stable condition.
== END 2022-04-07 19:15 | disposition home or self-care (01) | DRG 271 ==
LOC: MED/SURG 15:36 → ICU 04-02 11:11
PROVIDERS: ADMIT Surgery; ATTEND Surgery